=== PATIENT | female | born 2000 | race Two or more races ===

== ENCOUNTER 2020-07-26 19:08 | Emergency (ER) | payer MEDICAID, SELFPAY ==
[2020-07-26 19:12] VITALS: BP 118/65; PULSE 92; RESP 18; TEMP 37.2; O2SAT 99; BMI 28.5
--- NOTE | 2020-07-26 19:38 | PC.NURSE ---
PT AMB TO [facility] WITH STEADY GAIT. PT HAS 1CM LAC TO RIGHT INDEX FINGER. PT WAITING EVAL. NEUROVASC INTACT.
[2020-07-26] MEDS: Lidocaine HCl 1 % MPF 5 ML VIAL SUBCUT (19:59)
--- NOTE | 2020-07-26 20:18 | PC.NURSE ---
PROVIDER AT BEDSIDE FOR WOUND CLOSURE.
--- NOTE | 2020-07-26 20:38 | ED_ITS ---
HPI - Wound/Laceration General Chief Complaint: Wound/Laceration Stated Complaint: lac Time Seen by Provider: 07/26/20 19:52 Source: patient Mode of arrival: ambulatory Limitations: no limitations History of Present Illness HPI narrative: states hit it against a metal bar at home causing superficial laceration to the lateral aspect of the right index finger. Up-to-date on tetanus vaccination. Place: home Context: accidental Associated symptoms: none Related Data Allergies Allergy/AdvReac Type Severity Reaction Status Date / Time No Known Allergies Allergy Verified 07/26/20 19:49 [No Known Allergies*] Review of Systems Review of Systems: Constitutional: No Weight loss, No Fever, No Chills, No Night Sweats, No Fatigue, No Malaise ENT/Mouth: No Hearing loss, No Ear Pain, No Nasal Congestion, No Sinus Pain, No Hoarseness, No sore throa Eyes: No Eye Pain, No Swelling, No Redness, No Foreign Body, No Discharge, No Vision Changes Cardiovascular: No Chest Pain, No SOB, No Dyspnea on Exertion, No Orthopnea, No Edema, No Palpitations Respiratory: No Cough, No Sputum, No Wheezing, No Smoke Exposure, No Dyspnea Gastrointestinal: No Nausea, No Vomiting, No Diarrhea, No Constipation, No abdominal Pain Genitourinary: no irregular bleeding, No Dysuria, No Urinary Frequency, No Hematuria, No Urinary Incontinence, No Urgency Musculoskeletal: No joint pain, No Myalgias, No Joint Swelling Skin: No Skin Lesions, No rash Neuro: No Weakness, No Numbness, No Paresthesias, No Loss of Consciousness, No Dizziness, No Headache Psych: No Anxiety/Panic, No Depression, No SI/HI/AH/VH, No Social Issues Heme/Lymph: No Bruising, No Bleeding,No Lymphadenopathy Endocrine: No Polyuria, No Polydipsia, No Temperature Intolerance Yes all other systems are reviewed and are negative [facility] Social History Social History Smoking Status: Current every day smoker Use of substances other than those prescribed or required for medical reasons: No Advance Directives: No Advance Directives Information Provided: Yes Physical Exam Vital Signs: Vital Signs: Last Vital Signs Temp 98.9 F 07/26/20 19:12 Pulse 92 07/26/20 19:12 Resp 18 07/26/20 19:12 BP 118/65 07/26/20 19:12 Pulse Ox 99 07/26/20 19:12 Body Mass Index 28.5 Reviewed Const: General: cooperative and healthy appearing; No acute distress or intoxicated appearing Nutritional Appearance: average body habitus Orientation/consciousness: patient oriented x3 HENMT: Head: Yes normal to inspection Ears: hearing grossly normal bilaterally Eyes: General: appearance normal, both eyes and all related structures Visual Muse: normal visual muse by confrontation Resp: Effort & Inspection: normal respiratory effort Cardio: Jugular venous distension: no JVD Skin: General skin exam: no rashes or lesions noted Neuro: General: patient oriented x3 Extrem: General: Yes normal to inspection Hand/finger images: 1. Superficial 1 cm laceration to the lateral aspect of the right distal index finger. Full range of motion. Stable to extend and flex fully. Only exposed adipose tissue. Cap refill less than 2 seconds. Procedures Laceration Laceration 1: Site: upper extremity ( Right index finger) Side (If applicable): right Size (cm): 1 Description: linear Depth: simple, single layer Local Anesthetic: lidocaine 1% Amount of anesthesia used (mL): 3 Pre-repair: wound explored Skin layer closed with: nylon Size (cm): 5-0 Number of sutures: 2 Technique: simple, interrupted Discharge Plan Discharge Clinical Impression: Laceration Patient Disposition: Home, Self-Care Instructions: Finger Laceration (ED) Additional Instructions: Keep site clean and dry Have your finger sutures removed in 7 days Monitor for signs of infection including redness, swelling or discharge and if any concerns return sooner Thank you Referrals: ED Physician,Generic [Emergency Provider] - 1 week ( can return here or primary care doctor to have these 2 stitches removed from right index finger) Stand Alone Forms: Work/School Release
== END 2020-07-26 20:50 | disposition home or self-care (01) ==
PROVIDERS: Emergency Provider Internal Medicine
DX: S61.210A Laceration without foreign body of right index finger without damage to nail, initial encounter (principal); M79.641 Pain in right hand; W26.9XXA Contact with unspecified sharp object(s), initial encounter; Y93.9 Activity, unspecified; Y92.9 Unspecified place or not applicable; Y99.9 Unspecified external cause status
CPT/HCPCS: 11760; 12001; 99283; 99284

== ENCOUNTER 2021-07-03 12:44 | Emergency (ER) | payer MEDICAID, SELFPAY ==
[2021-07-03 13:53] VITALS: BP 131/80; PULSE 70; RESP 18; TEMP 36.8; O2SAT 98; BMI 30.5
== END 2021-07-03 19:55 | disposition left against medical advice (07) ==
PROVIDERS: Emergency Provider Emergency Medicine
DX: O46.90 Antepartum hemorrhage, unspecified, unspecified trimester (principal); Z3A.00 Weeks of gestation of pregnancy not specified
CPT/HCPCS: 99281; 99282

== ENCOUNTER → 2022-01-25 08:18 | Outpatient (BNVA) | payer MEDICAID, SELFPAY | PROVIDERS: Visit Provider Advanced Practice Midwife | DX: Z32.01 Encounter for pregnancy test, result positive (principal); N92.6 Irregular menstruation, unspecified; Z87.59 Personal history of other complications of pregnancy, childbirth and the puerperium | CPT/HCPCS: 81025; 99202 ==

== ENCOUNTER 2022-01-31 13:56 | Outpatient (REF) | payer MEDICAID, SELFPAY ==
[2022-01-31 18:22] LABS: CT PCR NOT DETECTED (Not Detect.); NG PCR NOT DETECTED (Not Detect.)
[2022-02-01 08:23] LABS: BV Int Neg Control Negative (Negative); BV Int Pos Control Positive (Positive)
== END 2022-01-31 13:57 | disposition home or self-care (01) ==
LOC: HO.LAB 13:56
PROVIDERS: Visit Provider Advanced Practice Midwife
DX: O26.891 Other specified pregnancy related conditions, first trimester (principal); N89.8 Other specified noninflammatory disorders of vagina; Z20.2 Contact with and (suspected) exposure to infections with a predominantly sexual mode of transmission
CPT/HCPCS: 87480; 87491; 87510; 87591; 87660; 88142; 99212

== ENCOUNTER 2022-02-02 10:02 | Outpatient (REF) | payer MEDICAID, SELFPAY ==
--- NOTE | ~2022-02-02 | US_ITS ---
EXAMINATION: OBSTETRICAL ULTRASOUND, FIRST TRIMESTER HISTORY: 21-year-old at the 8.0 weeks of gestation Irregular menstruation LMP: 12/08/2021 COMPARISON: None TECHNIQUE: Real time transabdominal imaging with color and M-mode Doppler. FINDINGS: A single, live IUP CRL of 13.3 mm c/w 7.5wks is noted. Heart Rate: 163 beats per minute. Normal yolk sac. Both maternal ovaries are seen and appear normal. GESTATIONAL AGE: 1. GA from LMP: 8.0 wks 2. GA from AUA: 7.5 wks ESTIMATED DATE OF DELIVERY: 1. JACKLYN from LMP: 09/14/2022 2. JACKLYN from AUA: 09/16/2022 US/US OB <= 14 weeks fetus IMPRESSION: 1. A single live IUP 2. Size equals dates 3. Normal ovaries Thank you very much for this referral.
== END 2022-02-02 10:03 | disposition home or self-care (01) ==
LOC: HO.US 10:02
PROVIDERS: Visit Provider Advanced Practice Midwife
DX: Z34.91 Encounter for supervision of normal pregnancy, unspecified, first trimester (principal); Z3A.08 8 weeks gestation of pregnancy; Z87.59 Personal history of other complications of pregnancy, childbirth and the puerperium
CPT/HCPCS: 76801

== ENCOUNTER → 2022-02-12 14:02 | Outpatient (BNVA) | payer MEDICAID, SELFPAY | PROVIDERS: Visit Provider Advanced Practice Midwife | DX: O09.291 Supervision of pregnancy with other poor reproductive or obstetric history, first trimester (principal); O99.891 Other specified diseases and conditions complicating pregnancy; N89.8 Other specified noninflammatory disorders of vagina; Z3A.09 9 weeks gestation of pregnancy | CPT/HCPCS: 99212 ==

== ENCOUNTER 2022-03-02 10:58 | Outpatient (REF) | payer MEDICAID, SELFPAY ==
--- NOTE | ~2022-03-02 | US_ITS ---
EXAMINATION: OBSTETRICAL ULTRASOUND, FIRST TRIMESTER HISTORY: 21-year-old at 12.0 weeks of gestation NT screening COMPARISON: 02/02/2022 TECHNIQUE: Real time transabdominal imaging with color and M-mode Doppler. FINDINGS: A single, live IUP CRL of 53.1 mm c/w 12.0wks is noted. Heart Rate: 152 beats per minute. Normal yolk sac seen. NT was 1.4.mm. NB Present The embryo appears sonographically wnl for this GA. The right ovary is within normal limits. The left was not seen. GESTATIONAL AGE: 1. Established GA: 12.0 wks 2. GA from AUA: 12.0 wks ESTIMATED DATE OF DELIVERY: 1. Established JACKLYN: 09/14/2022 2. [facility]: 09/14/2022 US/US OB 1T nuc measure IMPRESSION: 1. A single live IUP 2. Size equals dates 3. NT of 1.4 mm MFM Consultation: I reviewed the ultrasound findings along with significance of NT measurement. The NT of less than 3mm is generally reassuring. However, the sensitivity for T21 detection is only 60%. I reviewed the availability of serum aneuploidy screening which includes cell-free DNA and placental protein based tests. I discussed the sensitivity, false-positive rate, and other limitations associated with each test. I also reviewed the availability of invasive diagnostic tests that are associated small but definite risk of miscarriage. We also reviewed the differences between screening tests and diagnostic tests. After our discussion, she opted for the First trimester screening that is based on cell-free DNA or non-invasive testing (NIPT). The result will be faxed to your office in approximately 7 days. A follow up at 18 weeks for survey has been scheduled. Thank you very much for this referral. Total time 20 minutes. The time spent was devoted to counseling the patient about the disease and diagnosis, coordinating care including reviewing her records, pertinent lab data and studies, as well as discussing diagnostic evaluation and workup, plan therapeutic interventions and future disposition of care. This includes any additional research needed to obtain further information in formulating the plan of care of this patient. This note was generated with a voice recognition program. Please excuse any errors which may have been overlooked during my review of this note. Sometimes these errors may affect the content or meaning of a given sentence.
== END 2022-03-02 10:59 | disposition home or self-care (01) ==
LOC: HO.US 10:58
PROVIDERS: Visit Provider Advanced Practice Midwife
DX: Z34.91 Encounter for supervision of normal pregnancy, unspecified, first trimester (principal); Z36.82 Encounter for antenatal screening for nuchal translucency
CPT/HCPCS: 76813

== ENCOUNTER → 2022-03-06 14:30 | Outpatient (BNVA) | payer MEDICAID, SELFPAY | PROVIDERS: Visit Provider Advanced Practice Midwife | DX: O09.291 Supervision of pregnancy with other poor reproductive or obstetric history, first trimester (principal); Z3A.12 12 weeks gestation of pregnancy | CPT/HCPCS: 99212 ==

== ENCOUNTER → 2022-04-24 13:59 | Outpatient (BNVA) | payer MEDICAID, SELFPAY | PROVIDERS: Visit Provider Advanced Practice Midwife | DX: O09.292 Supervision of pregnancy with other poor reproductive or obstetric history, second trimester (principal); O99.612 Diseases of the digestive system complicating pregnancy, second trimester; K46.9 Unspecified abdominal hernia without obstruction or gangrene; Z3A.19 19 weeks gestation of pregnancy | CPT/HCPCS: 99212 ==

== ENCOUNTER 2022-04-25 12:25 | Outpatient (REF) | payer MEDICAID, SELFPAY ==
[2022-04-25 14:19] LABS: Hematocrit 37.1 % (37.0-47.0); Hemoglobin 12.5 g/dl (12.0-16.0); Mean Corpuscular HGB Conc 33.7 g/dl (31.0-35.0); Mean Corpuscular Hemoglobin 28.1 pg (27.0-33.0); Mean Corpuscular Volume 83.4 fL (80.0-98.0); Mean Platelet Volume 10.4 fL (9.4-12.3); Platelet Count 280 X10*3/uL (160-400); Red Blood Count 4.45 X10*6/uL (4.20-5.50); Red Cell Distribution Width 13.2 % (11.0-16.0); White Blood Count 6.5 X10*3/uL (4.8-10.8)
[2022-04-25 14:51] LABS: Alanine Aminotransferase 47 U/L (0-31); Aspartate Amino Transferase 26 U/L (5-31); Blood Urea Nitrogen 4 mg/dL (9-16); Estimated Glomerular Filt Rate > 60; Glucose 1 Hour PP 50gm Dose 169 mg/dL (60-140)
[2022-04-25 15:03] LABS: Uric Acid 3.1 mg/dL (2.4-5.7)
[2022-04-25 15:03] LABS: Amphetamine Screen Urine Not Detected (Not Detect); Barbiturates, Urine Not Detected (Not Detect); Benzodiazepines Screen Urine Not Detected (Not Detect); Cannabinoid Screen Urine Not Detected (Not Detect); Cocaine Screen Urine Not Detected (Not Detect); Fentanyl, urine Not Detected (Not Detect); Opiate Screen Urine Not Detected (Not Detect); Phencyclidine Screen Urine Not Detected (Not Detect)
[2022-04-25 15:10] LABS: Creatinine Urine 93.43 mg/dL; Total Protein Urine Random < 7 mg/dL (<12)
[2022-04-25 15:21] LABS: Syphilis Screen Nonreactive (Nonreactive)
[2022-04-26 09:20] LABS: HBsAGNum1 0.17 S/CO (0.00-0.99); HIV AB/AG Nonreactive (Nonreactive); HIV Num 1 0.05 S/CO (0.00-0.99); Hepatitis B Surface Antigen Negative (Negative); ~HepC Num1 0.07 S/CO (0.00-0.79); ~Hepatitis C Antibody Nonreactive (Nonreactive)
[2022-04-26 17:26] LABS: Rubella IgG Antibody 1.22 Index; Varicella IgG Antibody <135.00 index
== END 2022-04-25 12:26 | disposition home or self-care (01) ==
LOC: HO.LAB 12:25
PROVIDERS: Visit Provider Advanced Practice Midwife
DX: Z32.01 Encounter for pregnancy test, result positive (principal); Z87.59 Personal history of other complications of pregnancy, childbirth and the puerperium
CPT/HCPCS: 80307; 82565; 84156; 84450; 84460; 84520; 84550; 85027; 86762; 86780; 86787; 86803; 86850; 86900; 87086; 87340; 87389

== ENCOUNTER 2022-05-07 12:09 | Outpatient (REF) | payer MEDICAID, SELFPAY ==
[2022-05-07 13:22] LABS: Glucose Fasting 73 mg/dL (60-99)
[2022-05-07 14:40] LABS: Glucose 1 Hour 175 mg/dL
[2022-05-07 15:41] LABS: Glucose 2 Hour 132 mg/dL
[2022-05-07 16:15] LABS: Glucose 3 Hour 136 mg/dL
== END 2022-05-07 12:10 | disposition home or self-care (01) ==
LOC: HO.LAB 12:09
PROVIDERS: Visit Provider Advanced Practice Midwife
DX: O99.810 Abnormal glucose complicating pregnancy (principal)
CPT/HCPCS: 36415; 82951

== ENCOUNTER → 2024-01-06 12:43 | Outpatient (BNVA) | payer SELFPAY | PROVIDERS: Visit Provider Registered Nurse | DX: Z02.1 Encounter for pre-employment examination (principal) ==

== ENCOUNTER 2025-05-31 08:32 | Outpatient (AMB) | payer MEDICARE, SELFPAY ==
--- NOTE | 2025-05-31 08:35 | A.OFFPC_ITS ---
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 Asthma Attacks ? Back, Knee or Joint Pain ? Ear Infection ? Fever without a Rash ? Headaches ? Nausea ? [place] [facility], Rash or Skin Irritation ? Sore Throat ? Sports Physicals ? Vomiting Most insurances are accepted. Patients do not need to be part of the [facility] to seek care at the walk-in clinic. Locations [address] [place] [address] Open Saturday through Saturday 8am-5pm *Hours may vary due to staffing availability. To confirm Walk-In Care hours please call. Tobias Fatou Rivas, [place] [address] ? [phone] [facility] Walk-In Care in [place] provides services to ages 18 and over. Open Saturday-Saturday: 7 a.m. to 5 p.m. and Saturday: 9 a.m. to 3 p.m.* *Hours may vary due to staffing availability. To confirm Walk-In Care hours in [place], please call [phone]. [address] [place] [address] ? [phone] [facility] Walk-In Care in [place] provides services to ages 12 and over. Open Saturday-Saturday: 8 a.m. to 5 p.m. Hours may vary due to staffing availability. To confirm Walk-In Care hours in [place], please call [phone]. LABORATORY SERVICES: [facility] Lab ? Primary Location [address] [place] [address] Saturday through Saturday 6:00 AM ? 5:00 PM Saturday 7:00 AM ? 11:00 AM* [phone] The [facility] Lab is centrally located near the front entrance of the [facility] for easy outpatient access. Convenient parking is provided for outpatients. *Hours may vary due to staffing availability. To confirm Laboratory hours for any location, please call [phone]. Offsite Location For your convenience, we offer offsite laboratory draw stations at the following locations: [address] [place] [address] ? [facility] [address] [facility], [address] Saturday through Saturday 7:30 AM ? 1:00 PM* [phone] *Hours may vary due to staffing availability. To confirm Laboratory hours for any location, please call [phone]. [place] ? [address] Saturday through Saturday 6:00 AM ? 3:30 PM* Saturday 6:30 AM ? 3 PM* [phone] *Hours may vary due to staffing availability. To confirm Laboratory hours for any location, please call [phone] [place] [address] Saturday through Saturday 7:30 AM ? 4:00 PM* [phone] *Hours may vary due to staffing availability. To confirm Laboratory hours for any location, please call [phone] [place] [address] Saturday through 9:00 AM ? 4:00 PM* *Hours may vary due to staffing availability. To confirm Laboratory hours for any location, please call [phone]. Appointments are not necessary. Walk-ins are welcome. Like all the departments throughout the [facility], our Lab undergoes frequent reviews to ensure the quality and accuracy of test results, and our staff takes special pride in its status as a nationally accredited facility. Patient Portal: [facility] ONE PATIENT. ONE RECORD. BETTER CARE. [facility] has a fully integrated, cutting- edge mobile electronic health information system that has revolutionized the way we care for our patients and manage our organization. This system improves communication and coordination enabling us to provide safe, higher-quality care, and an overall positive experience for staff and patients. Our first priority, as always, is to deliver the highest quality care possible. The system is running in the background supporting that priority. This portal is for all [facility] services and practices. If you are experiencing any technical difficulties with enrolling or logging into the Patient Portal please complete the [facility] Patient Portal Technical Support Form. [facility] now offers a new secure on-line interactive tool for patients to review their health information ? ?Patient Portal. This interactive web portal will enable patients and their families to take an active role in their care by providing easy, secure access to their health information via the internet. The Patient Portal provides patients with instant access to their health information, including laboratory results, medications, allergies, demographic information, visit history, and more. In addition to managing their own care, parents and health care proxies with authorized consent will appreciate the ability to access the records of those individuals for whom they provide care. Please note: if you wish to gain access (Proxy) to another patient?s portal, you will be required to come to the Medical Records Department in person at [facility]. Both the patient giving proxy access and the proxy will need to provide photo identification and complete the appropriate authorization. The Patient Portal also allows track their appointments online. The [facility] Patient Portal also saves patients time by allowing them to submit updates to their demographic and contact information prior to their visits. Portal email notifications will also alert patients to any new activity on their portal, such as test results and new appointments. In order to initially enroll in the [facility] Patient Portal, you will need to enter some required information including the following: * your [facility] Medical Record number * your personal home email address * name * date of Please note: In order to enroll in the [facility] Patient Portal, we need to have your email address on file in your electronic medical record. ?The email address needs to be specific for one person (yourself) in order for your Portal enrollment to be successful. ?You can update your email address in person with our Registration staff when you are registering for a hospital visit. ?Otherwise, you will need to come to the Health Information Management (Medical Records) Department at [facility]. ?We are open from Saturday ? Saturday from 7:30 a.m. ? 4:30 p.m. ?You will be required to present a photo id. Once you have successfully enrolled in the Patient Portal, you will receive a one-time user id and password for the Portal, sent to your email address. ?This will allow you to log into the Patient Portal within 99 hrs and reset your own logon id and password, and define personal security questions. ?Once your permanent login and password have been set, you can log into the [facility] Patient Portal at any time via the blue button above or from the Portal Logon button on any page of the [facility] website. [facility] and [facility] encourage all of our patients to enroll in Patient Portal as it presents a valuable opportunity for patients and their families to actively participate in their care and stay healthy Welcome to [facility]. ?We look forward to working with you.
--- OUTSIDE RECORDS SUMMARY | 2025-05-31 08:36 | XMS_ITS | Clinical Summary ---
Author Organization [employer] Address [address] [facility] [address] [place] [address] Care Team Providers Care Rate Examiner Name Role Phone Unavailable Primary Care Provider Unavailabl e Social History Tobacco Use Types Packs/Day Years Used Date Smoking Tobacco: Never Assessed Comments Unknown Sex and Gender Information Value Date Recorded Sex Assigned at Female 06/18/2022 10:15 AM EDT Legal Sex Female 10:15 AM EDT Gender Identity Female 06/18/2022 10:15 AM EDT Sexual Orientation Straight 06/18/2022 10 :15 AM EDT Last Filed Vital Signs Vital Sign Reading Time Taken Comments Blood Pressure 130/74 01/17/2022 12:06 AM EDT Pulse 86 01/17/2022 12:06 AM EDT Temperature - - Respiratory Rate - - Oxygen Saturation - - Inhaled Oxygen Concentration - - Weight 86.2 kg (190 lb) 01/17/2022 12:06 AM EDT Height 158.8 cm (5' 2.5 ) 01/17/2022 12:06 AM ED T Body Mass Index 34.2 01/17/2022 12:06 AM EDT Plan of Treatment Health Maintenance Due Date Last Done Comments Depression Screening 1998 HIV Screening 1998 Lipid Panel 1998 SDOH Screening 1998 Disability Screening 1998 Alcohol/Substance Use Screening 2010 Tobacco Screening 2010 HPV Vaccines (2 - 2-dose series) 03/26/2010 09/26/2009 Family Planning (PISQ) 2013 Hepatitis C Screening 2016 Pap Smear 10/10/2024 10/10/2021 COVID-19 Vaccine ( season) 2025 08/18/2021 Influenza Vaccine (#1) 2025 08/03/2022 DTaP/Tdap/Td Vaccines (10 - Td or Tdap) 08/03/2032 08/03/2022, 02/28/2018, 01/20/2016, Additional history exists Zoster Vaccines (1 of 2) 2048 RSV Patients and Patients Aged 60 years or older (1 - 1-dose 75+ series) 2073 Hepatitis B Vaccines Completed 1998, 1998, 1998 HIB Vaccines Completed 07/24/1999, 10/17, 1998, Additional history exists IPV Vaccines Completed 04/06/2002, 04/20, 1998, Additional history exists Meningococcal Vaccine Aged Out 09/26/2009 No luh zakia eligible based on patient's age to complete this topic Hepatitis A Vaccines Aged Out No long er eligible based on patient's age to complete this topic Meningococcal B Vaccine Aged Out No l onger eligible based on patient's age to complete this topic Pneumococcal Vaccine: Pediatrics (0 to 5 Years) and At-Risk Patients (6 to 49) Years Aged Out No longer eligible based on patient's age to complete this topic RSV under 20 months Aged Out No longe r eligible based on patient's age to complete this topic Rotavirus Vaccines Aged Out No longer eligible based on patient's age to complete this topic Procedures Procedure Name Priority Date/Time Associated Diagnosis Comments THINPREP IMAGING PAP WITH REFLEX TO HPV MRNA E6/E7 Routine 10/10/2021 12:00 AM EST from Last 3 Months or Most Recently Relevant to Health Maintenance Results * THINPREP TIS PAP W/REFL HPV mRNA E6/E7 (10/10/2021 12:00 AM EST) Clinical Information: None given [facility] COMMENT SEE COMMENT [facility] Comment: EXPLANATORY NOTE: The Pap is a screening test for cervical cancer. It is not a diagnostic test and is subject to false negative and false positive results. It is most reliable when a satisfactory sample, regularly obtained, is submitted with relevant clinical findings and history, and when the Pap result is evaluated along with historic and current clinical information. COMMENT: This Pap test has been evaluated with computer assisted technology. [facility] Fiber Worker : SEE COMMENT [facility] Comment: ALS, CT(ASCP) CT screening location: [address] [address] Infection Shift in vaginal alfredo suggestive of bacterial vaginosis. [facility] Interpretation/R esult: Negative for intraepithelial lesion or malignancy. [facility] LMP: NONE [facility] Prev. BX: NONE [facility] Prev. PAP: NONE GIVEN [facility] SOURCE: [facility] Statement Of Adequacy: SEE COMMENT [facility] Comment: Satisfactory for evaluation. Endocervical/transformation zone component absent. Age and/or menstrual status not provided 10/10/2021 us Jesica Cee BLOG WRITER LAB PATHOLOGY ORDERABLES Final Result [facility] [address] from Last 3 Months or Most Recently Relevant to Health Maintenance Insurance [facility] C3
[2025-05-31 08:40] VITALS: BP 128/72; PULSE 72; RESP 12; TEMP 36.2; O2SAT 99; BMI 32.9
== END 2025-05-31 09:08 | disposition home or self-care (01) ==
LOC: HO.HMCFM 08:33
PROVIDERS: PCP Nurse Practitioner Family; Visit Provider Nurse Practitioner Family
DX: Z00.00 Encounter for general adult medical examination without abnormal findings (principal); N89.8 Other specified noninflammatory disorders of vagina; E66.9 Obesity, unspecified; Z68.32 Body mass index [BMI] 32.0-32.9, adult; Z87.898 Personal history of other specified conditions; Z87.19 Personal history of other diseases of the digestive system; Z83.3 Family history of diabetes mellitus; Z28.21 Immunization not carried out because of patient refusal; Z86.32 Personal history of gestational diabetes

== ENCOUNTER 2025-05-31 08:32 | Outpatient (REF) | payer MEDICARE, SELFPAY ==
--- OUTSIDE RECORDS SUMMARY | 2025-05-31 08:53 | XMS_ITS | Encounter Summary ---
Author Organization [facility] Address [address] [place] [address] Phone Care Team Providers Care Building Maintenance Engineer Name Role Phone Maurice Sam MD Primary Care Provider [phone] Encounter Details Date Type Department Care Team (Late st Contact Info) Description 03/22/2011 Documentation [facility] [address] [place] [address] Family Medicine, Physician [address] [place], [place] [phone] Social History Tobacco Use Types Packs/Day Years Used Date Smoking Tobacco: Never Assessed Comments Unknown Sex and Gender Information Value Date Recorded Sex Assigned at Not on file Legal Sex Female 4:36 PM EDT Gender Identity Not on file Sexual Orientation Not on file documented as of this encounter Plan of Treatment Not on file documented as of this encounter Visit Diagnoses Not on filedocumented in this encounter Care Teams Building Maintenance Engineer Relationship Specialty Start Date End Date Maurice Sam MD [address] [facility] [place] [address] PCP - General 03/29/17 02/07/23 documented as of this encounter
--- OUTSIDE RECORDS SUMMARY | 2025-05-31 08:53 | XMS_ITS | Encounter Summary ---
Author Organization [facility] Address [address] [place] [address] Phone Care Team Providers Care Data Modeler Name Role Phone Maurice Sam MD Primary Care Provider [phone] Encounter Details Date Type Department Care Team (Late st Contact Info) Description 10/25/2009 Documentation [facility] [place] [place] Family Medicine [address] [place] [address] Family Medicine, Physician [address] [place], [place] [id number] Social History Tobacco Use Types Packs/Day Years [...] on filedocumented in this encounter Care Teams Data Modeler Relationship Specialty Start Date End Date Mauirce Sam MD [address] [facility] [place] [address] PCP - General 03/29/17 02/07/23 documented as of this encounter
--- OUTSIDE RECORDS SUMMARY | 2025-05-31 08:53 | XMS_ITS | Encounter Summary ---
Author Organization [facility] Address [address] [place] [address] Phone Care Team Providers Care Men'S Swim Coach Name Role Phone Maurice Sam MD Primary Care Provider [phone] Encounter Details Date Type Department Care Team ([facility] st Contact Info) Description 04/04/2017 Conversion Encounter [facility] [address] [place] [address] Social History Tobacco Use Types Packs/Day Years [...] on filedocumented in this encounter Care Teams Men'S Swim Coach Relationship Specialty Start Date End Date Maurice Sam MD [address] [place] [address] PCP - General 03/29/17 02/07/23 documented as of this encounter
--- OUTSIDE RECORDS SUMMARY | 2025-05-31 08:53 | XMS_ITS | Encounter Summary ---
Author Organization [facility] Address [address] [place] [address] Phone Care Team Providers Care Piano Player Name Role Phone Maurice Sam MD Primary Care Provider [phone] Encounter Details Date Type Department Care Team (Late st Contact Info) Description 01/18/2010 Documentation [facility] [place] [address] [place] [address] Family Medicine, Physician [address] [place], [place] [phone] Social History Tobacco Use Types Packs/Day Years [...] on filedocumented in this encounter Care Teams Piano Player Relationship Specialty Start Date End Date Maurice Sam MD [address] [facility] [place] [address] PCP - General 03/29/17 02/07/23 documented as of this encounter
--- OUTSIDE RECORDS SUMMARY | 2025-05-31 08:53 | XMS_ITS | Clinical Summary ---
Author Organization [facility] Address [address] [place] [address] Phone Care Team Providers Care Group Billing Coordinator Name Role Phone Unavailable Primary Care Provider Unavailabl e Immunizations Immunization Administration Dates Next Due DTaP 5 04/06/2002, 9,1998, 998,1998 H1N1 06/08/2009 HPV, Quadrivalent 07/26/2010 Hep B, ped/adol 1998,1998,1998 Hib (PRP-T) 07/24/1999, 9,1998, 998 IPV 04/06/2002, 9,1998, 998 Influenza, injectable, trivalent 06/08/2009,05/20 Influenza, intranasal, trivalent 07/10/2010 MMR 04/06/2002,05/15/1999 Meningococcal Conj (Menactra) MCV4P 07/26/2010 Tdap 07/26/2010 Varicella 05/26/2004,1998 Family History Relation Name Status Comments Brother 1 Alive Brother: Alive and well, Alive and well, Alive and well, Asthma Brother 2 Alive Brother: Alive and well, Alive and well, Alive and well, Asthma Brother 3 Alive Brother: Alive and well, Alive and well, Alive and well, Asthma Father Alive Father: Alive a nd well Mother Alive Mother: Migrain es Sister Alive Sister: Alive a nd well, Asthma Social History Tobacco Use Types Packs/Day Years Used Date Smoking Tobacco: Never Assessed Comments Unknown Sex and Gender Information Value Date Recorded Sex Assigned at Not on file Legal Sex Female 4:36 PM EDT Gender Identity Not on file Sexual Orientation Not on file Last Filed Vital Signs Vital Sign Reading Time Taken Comments Blood Pressure 114/72 04/12/2011 12:00 AM EDT Pulse 72 04/12/2011 12:00 AM EDT Temperature - - Respiratory Rate - - Oxygen Saturation - - Inhaled Oxygen Concentration - - Weight 57.4 kg (126 lb 8 oz) 04/12/2011 12:00 AM EDT Height 154.4 cm (5' 0.8 ) 04/12/2011 12:00 AM ED T Body Mass Index 24.06 04/12/2011 12:00 AM EDT Plan of Treatment Health Maintenance Due Date Last Done Comments Varicella Vaccines (2 of 2 - 2-dose childhood series) 08/07/2010 05/26/2004, 1998 HPV Vaccines (2 - 2-dose series) 01/24/2011 07/26/2010 DTaP,Tdap,and Td Vaccines (7 - Td or Tdap) 07/26/2020 07/26/2010, 04/06/2002, 07/24/1999, Additional history exists Influenza Vaccines (#1) 2025 07/10/20 10, 06/08/2009, 06/10/2008 COVID-19 Vaccine ( season) 2025 Hepatitis B Vaccines Completed 1998, 1998, 1998 HIB Vaccines Completed 07/24/1999, 10/17, 1998, Additional history exists IPV Vaccines Completed 04/06/2002, 04/20, 1998, Additional history exists MMR Vaccines Completed 04/06/2002, 05/15/1999 Meningococcal Vaccine Aged Out 07/26/2010 No luh zakia eligible based on patient's age to complete this topic Hepatitis A Vaccines Aged Out No long er eligible based on patient's age to complete this topic Men B Vaccine Aged Out No longer elig ible based on patient's age to complete this topic Pneumococcal Vaccine Aged Out No long er eligible based on patient's age to complete this topic
--- OUTSIDE RECORDS SUMMARY | 2025-05-31 08:53 | XMS_ITS | Encounter Summary ---
Author Organization [facility] Address [address] [place] [address] Phone Care Team Providers Care Vascular Radiologist Name Role Phone Maurice Sam MD Primary Care Provider [phone] Encounter Details Date Type Department Care Team (Late st Contact Info) Description 11/17/2009 Documentation [facility] Family Medicine [address] [place] [address] Family Medicine, Physician [address] [place], [place] [phone] Social History Tobacco Use Types Packs/Day Years [...] on filedocumented in this encounter Care Teams Vascular Radiologist Relationship Specialty Start Date End Date Maurice Sam MD [address] [facility] [place] [address] PCP - General 03/29/17 02/07/23 documented as of this encounter
--- OUTSIDE RECORDS SUMMARY | 2025-05-31 08:53 | XMS_ITS | Encounter Summary ---
Author Organization [facility] Address [address] [place] [address] Phone Care Team Providers Care Alarm Security Or Surveillance Monitor Name Role Phone Maurice Sam MD Primary Care Provider [phone] Encounter Details Date Type Department Care Team (Late st Contact Info) Description 02/07/2011 Documentation [facility] [place] Family Medicine [address] [place] [address] Family Medicine, Physician [address] [place], [place] [phone] Social History Tobacco Use Types Packs/Day Years [...] on filedocumented in this encounter Care Teams Alarm Security Or Surveillance Monitor Relationship Specialty Start Date End Date Maurice Sam MD [address] [facility] [place] [address] PCP - General 03/29/17 02/07/23 documented as of this encounter
--- OUTSIDE RECORDS SUMMARY | 2025-05-31 08:53 | XMS_ITS | Encounter Summary ---
Author Organization [facility] Address [address] [place] [address] Phone Care Team Providers Care Electronics Lead Name Role Phone Maurice Sam MD Primary Care Provider [phone] Encounter Details Date Type Department Care Team (Late st Contact Info) Description 05/31/2011 Documentation [facility] [place] [address] [place] [address] Family Medicine, Physician [address] [place], [place] [phone] Social History Tobacco Use Types Packs/Day Years [...] on filedocumented in this encounter Care Teams Electronics Lead Relationship Specialty Start Date End Date Maurice Sam MD [address] [facility] [place] [address] PCP - General 03/29/17 02/07/23 documented as of this encounter
[2025-05-31 11:16] LABS: Hematocrit 40.2 % (37.0-47.0); Hemoglobin 13.2 g/dl (12.0-16.0); Mean Corpuscular HGB Conc 32.8 g/dl (31.0-35.0); Mean Corpuscular Hemoglobin 27.8 pg (27.0-33.0); Mean Corpuscular Volume 84.6 fL (80.0-98.0); NRBC Abs Auto 0.000 X10*3/uL (0.0-0.012); NRBC Pct Auto 0.0 /100WBC (0.0-0.2); Platelet Count 268 X10*3/uL (160-400); Red Blood Count 4.75 X10*6/uL (4.20-5.50); White Blood Count 3.0 X10*3/uL (4.8-10.8)
[2025-05-31 11:31] LABS: Microalbum/Creatinine Ratio Ur 16.1 ug/mg cr (<30)
[2025-05-31 11:37] LABS: Alanine Aminotransferase 25 U/L (0-31); Albumin Level 4.1 g/dL (3.5-5.0); Alkaline Phosphatase 56 U/L (39-117); Anion Gap 11 (12-20); Aspartate Amino Transferase 30 U/L (5-31); Blood Urea Nitrogen 6 mg/dL (9-16); Calcium 8.7 mg/dL (8.4-10.2); Carbon Dioxide 26 mmol/L (22-29); Chloride 106 mmol/L (96-108); Cholesterol 124 mg/dL (<200); Estimated Glomerular Filt Rate > 60; HDL Cholesterol 42 mg/dL (>40); Potassium 3.7 mmol/L (3.3-5.1); Sodium 139 mmol/L (135-145); Total Protein 7.7 g/dL (6.5-8.0); Triglycerides 53 mg/dL (<150)
[2025-05-31 11:53] LABS: Appearance Urine Clear; Glucose Urine UA Negative (Negative); PH 7.0 (5.0-9.0); Specific Gravity - Urine 1.015 (1.005-1.025)
[2025-05-31 11:59] LABS: Folate 7.7 ng/mL (> or = 4.0); Vitamin B12 301 pg/mL (200-900)
[2025-05-31 12:19] LABS: Bacterial Vaginosis PCR POSITIVE (Negative); Candida Group PCR NOT DETECTED (Not Detect); Candida glab krusei PCR NOT DETECTED (Not Detect); Trichomonas vaginalis PCR NOT DETECTED (Not Detect)
[2025-05-31 12:51] LABS: CT PCR Urine NOT DETECTED (Not Detect.); NG PCR Urine NOT DETECTED (Not Detect.)
== END 2025-05-31 08:33 | disposition home or self-care (01) ==
LOC: HO.LAB 08:32
PROVIDERS: PCP Nurse Practitioner Family; Visit Provider Nurse Practitioner Family
DX: Z00.00 Encounter for general adult medical examination without abnormal findings (principal); R30.0 Dysuria; E55.9 Vitamin D deficiency, unspecified; N76.0 Acute vaginitis; K46.9 Unspecified abdominal hernia without obstruction or gangrene; E66.9 Obesity, unspecified; Z12.4 Encounter for screening for malignant neoplasm of cervix; Z87.59 Personal history of other complications of pregnancy, childbirth and the puerperium; Z28.21 Immunization not carried out because of patient refusal; Z86.32 Personal history of gestational diabetes; Z76.89 Persons encountering health services in other specified circumstances; Z87.898 Personal history of other specified conditions; Z87.19 Personal history of other diseases of the digestive system; Z83.3 Family history of diabetes mellitus
CPT/HCPCS: 80053; 80061; 81003; 81515; 82043; 82306; 82570; 82607; 82746; 83036; 84443; 85027; 87491; 87591; 96127; 99202; 99385

== ENCOUNTER 2025-05-31 09:19 | Outpatient (REF) | payer MEDICARE, SELFPAY | END 2025-05-31 09:20 | disposition home or self-care (01) | LOC: HO.WFDLDS 09:19 | PROVIDERS: Visit Provider Nurse Practitioner Family | DX: Z13.89 Encounter for screening for other disorder (principal) ==